=== PATIENT | female | born 1965 | race African-American/Black ===

== ENCOUNTER 2020-11-26 12:06 | Emergency (ER) | payer MEDICAID ==
[~2020-11-26] VITALS: Ht 154.9 cm; Wt 75.0 kg
[2020-11-26] MEDS ORDERED: METF-845 PO (12:40)
[2020-11-26] MEDS ORDERED: AMOXICILLIN TRIHYDRATE 250 MG CAPSULE PO ONE (14:00)
[2020-11-26] MEDS ORDERED: KETOROLAC TROMETHAMINE 30 MG/ML VIAL IM ONE (14:00)
[2020-11-26 14:26] VITALS: BP 140/106
== END 2020-11-26 14:27 | disposition home or self-care (01) ==
LOC: EMS 12:06
DX: K04.7 Periapical abscess without sinus (principal); E11.9 Type 2 diabetes mellitus without complications; Z79.84 Long term (current) use of oral hypoglycemic drugs
CPT/HCPCS: 96372; 99283; J1885

== ENCOUNTER 2021-03-16 23:21 | Emergency (ER) | payer MEDICAID ==
[~2021-03-16] VITALS: Ht 154.9 cm; Wt 113.6 kg
[~2021-03-16 23:21] MED LIST: METF-845 PO
[2021-03-17] MEDS ORDERED: KETOROLAC TROMETHAMINE 30 MG/ML VIAL IM ONE (01:00)
[2021-03-17] MEDS ORDERED: DiphenhydrAMINE HCL 25 MG CAPSULE PO ONE (01:00)
[2021-03-17] MEDS ORDERED: ACETAMINOPHEN 500 MG TABLET PO ONE (01:00)
[2021-03-17] MEDS ORDERED: METOCLOPRAMIDE HCL 10 MG TABLET PO ONE (01:00)
[2021-03-17 01:15] VITALS: BP 127/78
== END 2021-03-17 04:20 | disposition home or self-care (01) ==
LOC: EMS 23:21
DX: S09.90XA Unspecified injury of head, initial encounter (principal); E11.9 Type 2 diabetes mellitus without complications; W22.8XXA Striking against or struck by other objects, initial encounter; Y93.89 Activity, other specified; Y92.89 Other specified places as the place of occurrence of the external cause; Y99.8 Other external cause status
CPT/HCPCS: 70450; 82962; 96372; 99284; J1885